=== PATIENT | male | born 1955 | race Two or more races ===

== ENCOUNTER 2017-10-09 16:18 | Emergency (ER) | payer OTHER ==
[~2017-10-09] VITALS: Ht 157.5 cm; Wt 69.9 kg
[2017-10-09 19:12] LABS: Basophils # (auto) 0.1 uL; Basophils % (auto) 0.9 % (0.0-2.0); Eosinophils # (auto) 0.3 uL; Eosinophils % (auto) 4.6 % (0.0-7.0); Hemoglobin 13.3 g/dL (13.5-17.5); Lymphocytes # (auto) 2.9 uL; Lymphocytes % (auto) 43.7 % (10.0-50.0); Mean Corpuscular Hgb Conc. 34.9 g/dL (32.0-36.0); Mean Corpuscular Volume 94.5 fL (80.0-100.0); Monocytes # (auto) 0.7 uL; Monocytes % (auto) 10.1 % (0.0-12.0); Neutrophils # (auto) 2.7 uL; Neutrophils % (auto) 40.7 % (37.0-80.0); Nucleated Red Blood Cells % 0.3 %; Platelet Count (auto) 215 10^3/uL (140-450); Red Blood Cells 4.02 10^6/uL (4.5-5.90); Red Cell Distribution Width 13.2 % (11.8-14.3); White Blood Cell 6.7 10^3/uL (4.4-10.8)
[2017-10-09] MEDS ORDERED: ENOXAPARIN SOD 80 MG/0.8ML SYRINGE SC ONE (19:15)
[2017-10-09 19:30] LABS: INR 0.94 (0.9-1.15); Partial Thromboplastin Time 26.1 sec (23.78-33.04); Prothrombin Time 10.1 sec (9.27-12.13)
[2017-10-09 19:32] LABS: Alanine Aminotransferase 34 U/L (16-61); Albumin 3.6 g/dL (3.4-5.0); Anion Gap 10 (5-15); Aspartate Aminotransferase 18 U/L (15-37); BUN/Creatinine Ratio 20.3; Blood Urea Nitrogen 36 mg/dL (7-18); Calcium 8.4 mg/dL (8.5-10.1); Carbon Dioxide 24 mmol/L (21-32); Chloride 104 mmol/L (98-107); GFR African American 50 mL/min; GFR Non-African American 42 mL/min; Glucose 157 mg/dL (74-106); Potassium 4.2 mmol/L (3.5-5.1); Sodium 138 mmol/L (136-145)
[2017-10-09 19:36] LABS: Alkaline Phosphatase 107 U/L (45-117); Bilirubin, Total 0.7 mg/dL (0.2-1.0); Total Protein 7.9 g/dL (6.4-8.2)
[2017-10-09 21:40] VITALS: BP 156/99
== END 2017-10-09 23:03 | disposition home or self-care (01) ==
LOC: ER 16:26
DX: I82.413 Acute embolism and thrombosis of femoral vein, bilateral (principal); I82.433 Acute embolism and thrombosis of popliteal vein, bilateral; E11.9 Type 2 diabetes mellitus without complications; E78.5 Hyperlipidemia, unspecified
CPT/HCPCS: 36415; 80053; 83036; 84484; 85025; 85610; 85730; 93005; 93970; 94761; 96372; 99285; J1650

== ENCOUNTER 2020-08-15 06:54 | Day surgery (SDC) | payer OTHER, MEDICAID ==
[~2020-08-15] VITALS: Ht 157.5 cm; Wt 78.0 kg
[2020-08-15] MEDS ORDERED: fentaNYL CITRATE 100 MCG/2 ML VL ONE (07:45)
[2020-08-15] MEDS ORDERED: ANGIOMAX 250 MG VIAL IV ONE (07:45)
[2020-08-15] MEDS ORDERED: VERAPAMIL 2.5MG/ML INJ 2ML VIAL IV ONE (07:45)
[2020-08-15] MEDS ORDERED: HEPARIN SODIUM (PORCINE) 5000 UNITS/ML 1ML VIAL ONE (07:45)
[2020-08-15] MEDS ORDERED: MIDAZOLAM HCL 1MG/1ML-2 ML VIAL ONE (07:46)
[2020-08-15] MEDS ORDERED: SODIUM CHL 0.9% 50 ML ONE (07:46)
[2020-08-15] MEDS ORDERED: LIDOCAINE 2%HCL (LOCAL ANESTH.) INJ 20ML MDV ONE (07:47)
[2020-08-15] MEDS ORDERED: IODIXANOL 320MG/ML 100ML BTL IV ONE (08:27)
[2020-08-15] MEDS ORDERED: ASPirin 325 MG TAB ONE (08:42)
[2020-08-15] MEDS ORDERED: TICAGRELOR 90 MG TAB ONE (08:42)
[2020-08-15] MEDS ORDERED: DULA1INJ SC (09:35)
[2020-08-15] MEDS ORDERED: PANT40T PO (09:35)
[2020-08-15] MEDS ORDERED: ASPI-717 PO (09:35)
[2020-08-15] MEDS ORDERED: ATOR40TA52 PO (09:35)
[2020-08-15] MEDS ORDERED: CLOP75TA70 PO (09:35)
[2020-08-15] MEDS ORDERED: ISOS1TAB28 PO (09:35)
[2020-08-15] MEDS ORDERED: ACETAMINOPHEN 500 MG TAB PO PRN (11:00)
[2020-08-15] MEDS ORDERED: HYDROcodone-ACET 5/325MG TAB PO PRN (11:00)
[2020-08-15] MEDS ORDERED: ONDANSETRON HCL 4 MG/2 ML VIAL IV PRN (11:00)
[2020-08-15] MEDS ORDERED: amLODIPine BESYLATE 5 MG TAB PO ONE (11:30)
== END 2020-08-15 12:36 | disposition home or self-care (01) ==
LOC: CATH 06:54
PROVIDERS: ATTEND Internal Medicine Cardiovascular Disease
DX: R94.39 Abnormal result of other cardiovascular function study (principal); I25.10 Atherosclerotic heart disease of native coronary artery without angina pectoris; E11.9 Type 2 diabetes mellitus without complications; E78.5 Hyperlipidemia, unspecified; Z68.31 Body mass index [BMI] 31.0-31.9, adult; Z20.822 Contact with and (suspected) exposure to COVID-19; Z98.890 Other specified postprocedural states; Z79.899 Other long term (current) drug therapy
CPT/HCPCS: 93458; C1725; C1726; C1769; C1874; C1887; C1894; C9600; J0583; J1644; J2250; J3010; J7030; Q9967; U0003; 99152; 99153

== ENCOUNTER 2020-08-21 01:37 | Inpatient (IN) | payer OTHER, MEDICAID ==
[2020-08-21] VITALS (7 sets, daily range): BP systolic 111–167; BP diastolic 69–123
[~2020-08-21] VITALS: Ht 30.5 cm; Wt 72.4 kg
[~2020-08-21 01:37] MED LIST: ASPI-717 PO; ATOR40TA52 PO; CLOP75TA70 PO; DULA1INJ SC; ISOS1TAB28 PO; PANT40T PO
[2020-08-21] MEDS ORDERED: NITROGLYCERIN 0.4 MG SL TAB SL PRN (02:15)
[2020-08-21] MEDS ORDERED: MORPHINE SULFATE INJECTION 2 MG/ML SYRG IV PRN (02:15)
[2020-08-21 05:27] LABS: Basophils # (auto) 0 10 ^3/uL (0-0.2); Basophils % (auto) 0.7 % (0.0-2.0); Eosinophils # (auto) 0.2 10 ^3/uL (0-0.8); Eosinophils % (auto) 3.1 % (0.0-7.0); Hematocrit 39.4 % (41.0-53.0); Hemoglobin 14.2 g/dL (13.5-17.5); Lymphocytes # (auto) 2.1 10 ^3/uL (0.4-5.4); Lymphocytes % (auto) 32.2 % (10.0-50.0); Mean Corpuscular Hemoglobin 33.4 pg (28.0-32.0); Mean Corpuscular Volume 92.8 fL (80.0-100.0); Monocytes # (auto) 0.6 10 ^3/uL (0-1.3); Monocytes % (auto) 9.5 % (0.0-12.0); Neutrophils # (auto) 3.6 10 ^3/uL (1.6-8.6); Neutrophils % (auto) 54.5 % (37.0-80.0); Red Blood Cells 4.25 10^6/uL (4.5-5.90); Red Cell Distribution Width 13.1 % (11.8-14.3); White Blood Cell 6.6 10^3/uL (4.4-10.8)
[2020-08-21 05:42] LABS: INR 1.01 (0.9-1.15); Partial Thromboplastin Time 26.2 sec (23.0-31.2)
[2020-08-21 05:44] LABS: Potassium 4.3 mmol/L (3.5-5.1)
[2020-08-21 05:59] LABS: Albumin 3.8 g/dL (3.4-5.0); BUN/Creatinine Ratio 14.8; Bilirubin, Total 1.5 mg/dL (0.2-1.0); Calcium 8.7 mg/dL (8.5-10.1)
[2020-08-21] MEDS: TICAGRELOR 90 MG TAB PO SCH ×2 (09:27→21:09)
[2020-08-21] MEDS: CARVEDILOL 3.125 MG TAB PO SCH ×2 (09:28→21:08)
[2020-08-21] MEDS: ISOSORBIDE MONONITRATE ER 60 MG TAB PO SCH (09:29)
[2020-08-21] MEDS ORDERED: ASPirin 81 mg TAB PO ONE (10:00)
[2020-08-21] MEDS ORDERED: cloNIDine HCL 0.1 MG TAB PO PRN (11:15)
[2020-08-21] MEDS ORDERED: DEXTROSE (50%) 50ML SYRG IV PRN (11:45)
[2020-08-21] MEDS ORDERED: PANTOPRAZOLE 40 MG TAB PO ONE (11:45)
[2020-08-21] MEDS ORDERED: CLOPIDOGREL BISULFATE 75 MG TAB PO ONE (11:45)
[2020-08-21] MEDS ORDERED: NITROGLYCERIN 0.4MG/HR TOPICAL PATCH TD ONE (15:30)
[2020-08-21] MEDS: ACCU-CHEK COMFORT CURVE STRIP VI SCH ×2 (16:38→20:55)
[2020-08-21] MEDS: InsuLIN REG 1unit/0.01ml Soln (100units/ml) SC SCH ×2 (17:22→20:58)
[2020-08-21] MEDS ORDERED: ATORVASTATIN 20 MG TAB PO SCH (22:00)
[2020-08-22 05:00] VITALS: BP 141/89
[2020-08-22] MEDS: ACCU-CHEK COMFORT CURVE STRIP VI SCH ×3 (05:25→17:55)
[2020-08-22] MEDS: InsuLIN REG 1unit/0.01ml Soln (100units/ml) SC SCH ×3 (05:29→17:56)
[2020-08-22 05:33] LABS: Mean Corpuscular Hemoglobin 33.8 pg (28.0-32.0); Monocytes # (auto) 0.6 10 ^3/uL (0-1.3)
[2020-08-22 05:35] LABS: Basophils # (auto) 0 10 ^3/uL (0-0.2); Basophils % (auto) 0.6 % (0.0-2.0); Eosinophils # (auto) 0.2 10 ^3/uL (0-0.8); Eosinophils % (auto) 2.8 % (0.0-7.0); Hematocrit 37.4 % (41.0-53.0); Hemoglobin 13.6 g/dL (13.5-17.5); Lymphocytes # (auto) 2.1 10 ^3/uL (0.4-5.4); Lymphocytes % (auto) 35.3 % (10.0-50.0); Mean Corpuscular Hgb Conc. 36.4 g/dL (32.0-36.0); Mean Corpuscular Volume 92.8 fL (80.0-100.0); Monocytes % (auto) 10.3 % (0.0-12.0); Nucleated Red Blood Cells % 0.1 %; Red Blood Cells 4.03 10^6/uL (4.5-5.90); Red Cell Distribution Width 13.5 % (11.8-14.3); White Blood Cell 5.9 10^3/uL (4.4-10.8)
[2020-08-22 05:49] LABS: Albumin 3.6 g/dL (3.4-5.0); Calcium 8.6 mg/dL (8.5-10.1); Potassium 4.2 mmol/L (3.5-5.1)
[2020-08-22 05:57] LABS: BUN/Creatinine Ratio 19.7; Bilirubin, Total 1.7 mg/dL (0.2-1.0); Total Protein 7.5 g/dL (6.4-8.2)
[2020-08-22] MEDS ORDERED: IOHEXOL 350 MG/ML 100ML IJ ONE (07:38)
[2020-08-22] MEDS ORDERED: LIDOCAINE 2%HCL (LOCAL ANESTH.) INJ 20ML MDV ONE (07:38)
[2020-08-22] MEDS ORDERED: HEPARIN IN NS 1000Units/500mL 0 ML ONE (07:39)
[2020-08-22 09:00] VITALS: BP 148/101
[2020-08-22] MEDS ORDERED: CARVEDILOL 12.5 MG TAB PO SCH (10:00)
[2020-08-22] MEDS ORDERED: PANTOPRAZOLE 40 MG TAB PO SCH (10:00)
[2020-08-22] MEDS ORDERED: ASPirin 81 mg TAB PO SCH (10:00)
[2020-08-22] MEDS ORDERED: CLOPIDOGREL BISULFATE 75 MG TAB PO SCH (10:00)
[2020-08-22] MEDS: TICAGRELOR 90 MG TAB PO SCH (10:53)
[2020-08-22] MEDS: ISOSORBIDE MONONITRATE ER 60 MG TAB PO SCH (10:54)
[2020-08-22 13:00] VITALS: BP 113/69
[2020-08-22 17:00] VITALS: BP 123/68
[2020-08-22 18:04] VITALS: BP 123/68
== END 2020-08-22 18:18 | disposition home or self-care (01) | DRG 310 ==
LOC: TELE-WESTW 01:37
PROVIDERS: ADMIT Internal Medicine Cardiovascular Disease; ATTEND Internal Medicine Cardiovascular Disease
DX: I47.1 Supraventricular tachycardia (principal); I25.10 Atherosclerotic heart disease of native coronary artery without angina pectoris; N18.30 Chronic kidney disease, stage 3 unspecified; H54.7 Unspecified visual loss; E11.22 Type 2 diabetes mellitus with diabetic chronic kidney disease; E78.5 Hyperlipidemia, unspecified; I12.9 Hypertensive chronic kidney disease with stage 1 through stage 4 chronic kidney disease, or unspecified chronic kidney disease; Z79.82 Long term (current) use of aspirin; Z95.5 Presence of coronary angioplasty implant and graft; Z20.822 Contact with and (suspected) exposure to COVID-19
CPT/HCPCS: 36415; 71045; 80053; 82962; 83036; 83735; 83880; 84443; 84484; 85025; 85049; 85610; 85730; 86850; 86900; 86901; 87081; 93005; 93306; G0378; J1815